=== PATIENT | female | born 1955 | race Caucasian/White ===

== ENCOUNTER 2017-06-25 10:36 | Emergency (ER) | payer MEDICAID ==
[~2017-06-25] VITALS: Ht 149.9 cm; Wt 77.1 kg
[2017-06-25 10:41] VITALS: BP_SYST 141
[2017-06-25] MEDS ORDERED: KETOROLAC TROMETHAMINE 60 MG/2 ML VIAL IM ONE (11:30)
[2017-06-25] MEDS ORDERED: ONDANSETRON 4 MG ODT TAB PO ONE (11:30)
[2017-06-25 12:24] VITALS: BP_SYST 135
== END 2017-06-25 12:13 | disposition home or self-care (01) ==
LOC: SED 10:36
DX: J02.9 Acute pharyngitis, unspecified (principal); Z90.49 Acquired absence of other specified parts of digestive tract; Z90.710 Acquired absence of both cervix and uterus
CPT/HCPCS: 36415; 71046; 86710; 96372; 99285; J1885; Q0162